=== PATIENT | female | born 1985 | race African-American/Black ===

== ENCOUNTER 2020-08-14 15:33 | Outpatient (CLI) | payer MEDICARE, MEDICAID ==
--- NOTE | 2020-08-14 16:13 | ULT ---
ULTRASOUND PELVIC ULTRASOUND PELVIC ULTRASOUND TRANSVAGINAL DOPPLER DUPLEX: DATE: 08/14/2020 HISTORY: 34-year-old female with vaginal bleeding: "N 92.1 through bleeding on Depo-Provera" COMPARISON: None TECHNIQUE: Transabdominal transducer and endovaginal transducer used to visualize intrapelvic contents with nuñez scale, color-flow, and spectral analysis. FINDINGS: Uterus:8 x 3.3 x 4.8 cm.. Endometrial stripe:1.2 cm (12 mm). Nonspecific heterogeneous, hyperechoic patchy regions of the endom etrial stripe at fundus posteriorly. Right ovary:2.3 x 1.8 x 2.3 cm.. Left ovary:2.3 x 2.5 x 1.5 cm.. For technical reasons, there is suboptimal visualization of the ovaries, especially the right, such t hat right ovarian margins are poorly defined. Uterine leiomyoma (fibroid):None Blood flow in ovaries:Bilaterally demonstrated Ovarian cyst:None 2 cm or larger Free fluid in the cul-de-sac:Small amount IMPRESSION: 1) region of nonspecific heterogeneous echogenicity at the fundal portion of endometrial stripe. 2) 12 mm endometrial stripe.
== END 2020-08-14 15:34 | disposition home or self-care (01) ==
LOC: BICULT 15:33
PROVIDERS: ATTEND Nurse Practitioner
DX: N92.1 Excessive and frequent menstruation with irregular cycle (principal)
CPT/HCPCS: 76856